=== PATIENT | male | born 1950 | race Caucasian/White ===

== ENCOUNTER 2017-03-20 19:39 | Emergency (ER) | payer MEDICARE, BC ==
[2017-03-20] MEDS ORDERED: Aspirin 81 MG Tab.Chew PO ONE (19:45)
--- NOTE | 2017-03-20 20:03 | EDM.PDOC ---
ED HPI GENERAL MEDICAL PROBLEM - General Chief Complaint: General Stated Complaint: CHEST PAIN Time Seen by Provider: 03/20/17 19:42 Source of Information: Reports: Patient History Limitations: Reports: No Limitations - History of Present Illness INITIAL COMMENTS - FREE TEXT/NARRATIVE: The patient presents with a 4 day history of pain of the left shoulder and arm which he describes as an aching pain. He reports that he began having substernal aching and pressure of his chest 2 days ago as well. He reports the pain has been intermittent lasting up to a few hours at a time. He denies exertional dyspnea or exertional angina. He denies orthopnea. He reports the last time he had chest pain was approximtely 2:30 p.m. today. He denies chest pain or pain in left arm currently. He denies a history of TX, LORIE, CABG, DVT, or PE. He denies a history of stroke. He has never had cardiac stress testing. He has risk factors of smoking 1-3 ppd for 40 years and currently smokes 1 ppd. He denies other symptoms or complaints. Middle Chest Pain Score (Numeric/FACES): 2 - Related Data Allergies Allergy/AdvReac Type Severity Reaction Status Date / Time No Known Allergies Allergy Verified 08/06/13 16:47 Home Meds: Home Meds Latanoprost [Latanoprost] 1 drop EYEBOTH DAILY 03/20/17 [History] Timolol Maleate [Timoptic 0.5% Ophth Soln] 1 drop EYEBOTH DAILY 03/20/17 [ History] Social & Family History - Tobacco Use Years of Tobacco use: 50 ED ROS GENERAL - Review of Systems Review Of Systems: ROS reveals no pertinent complaints other than HPI. ED EXAM, GENERAL - Physical Exam Exam: See Below Exam Limited By: No Limitations General Appearance: Alert, WD/WN, No Apparent Distress, Other (Marginal hygiene. Smells of cigarette smoke.) Eye Exam: Bilateral Eye: EOMI, Normal Fundi, Normal Inspection, PERRL Ears: Normal External Exam, Normal Canal, Hearing Grossly Normal, Normal TMs Ear Exam: Bilateral Ear: Auricle Normal, Canal Normal, TM normal Nose: Normal Inspection, Normal Mucosa, No Blood Throat/Mouth: Normal Inspection, Normal Lips, Normal Teeth, Normal Gums, Normal Oropharynx, Normal Voice, No Airway Compromise Head: Atraumatic, Normocephalic Neck: Normal Inspection, Supple, Non-Tender, Full Range of Motion. No: Lymphadenopathy (L), Lymphadenopathy (R) Respiratory/Chest: No Respiratory Distress, Lungs Clear, Normal Breath Sounds, No Accessory Muscle Use, Chest Non-Tender Cardiovascular: Normal Peripheral Pulses, Regular Rate, Rhythm, No Edema, No Gallop, No Murmur, No Rub GI/Abdominal: Normal Bowel Sounds, Soft, Non-Tender, No Organomegaly, No Distention Extremities: Normal Inspection, Normal Range of Motion, Non-Tender, No Pedal Edema Neurological: Alert, Oriented, CN II-XII Intact, Normal Cognition, Normal Gait, Normal Reflexes, No Motor/Sensory Deficits, Other (No pronator drift of arms. No dysmetria. Tone normal. No clonus or spasticity. Babinski absent in bilateral lower extremities. ) Psychiatric: Normal Affect, Normal Mood Skin Exam: Warm, Dry, Intact, Normal Color, No Rash Lymphatic: No Adenopathy Course - Vital Signs Last Recorded V/S: Last Vital Signs Temp 37.3 C 03/20/17 19:40 Pulse 80 03/20/17 19:40 Resp 16 03/20/17 19:40 BP 112/72 03/20/17 19:40 Pulse Ox 100 03/20/17 19:40 - Orders/Labs/Meds Orders: Active Orders 24 hr Category Date Time Status EKG Documentation Completion [RC] ASDIRECTED Care 03/20/17 19:44 Active Chest 1V Frontal [CR] Stat Exams 03/20/17 19:44 Ordered Labs: Laboratory Tests 03/20/17 03/20/17 Range/Units 19:44 19:44 WBC 11.7 H (4.0-10.2) K/uL RBC 5.02 (4.33-5.41) M/uL Hgb 15.5 (13.1-16.8) g/dL Hct 43.2 (39.0-49.0) % MCV 86.1 (84.0-98.0) fL MCH 30.9 (28.2-33.3) pg MCHC 35.9 (31.7-36.0) g/dL RDW 12.5 (11.2-14.1) % Plt Count 261 (150-350) K/uL Neut % (Auto) 61.9 (45.0-80.0) % Lymph % (Auto) 27.6 (10.0-50.0) % Bureau % (Auto) 8.8 (2.0-14.0) % Eos % (Auto) 1.4 (0.0-5.0) % Baso % (Auto) 0.3 (0.0-2.0) % Neut # (Auto) 7.22 H (1.40-7.00) K/uL Lymph # (Auto) 3.22 (0.50-3.50) K/uL Bureau # (Auto) 1.02 H (0.00-1.00) K/uL Eos # (Auto) 0.16 (0.00-0.50) K/uL Baso # (Auto) 0.03 (0.00-0.20) K/uL Sodium 136 (136-145) mmol/L Potassium 3.6 (3.5-5.1) mmol/L Chloride 101 (98-107) mmol/L Carbon Dioxide 26.1 (21.0-32.0) mmol/L BUN 12 (7-18) mg/dL Creatinine 0.93 (0.51-1.17) mg/dL Est Cr Clr Drug Dosing 68.60 mL/min Estimated GFR (MDRD) > 60 mL/min Glucose 389 H* (74-106) mg/dL Calcium 8.6 (8.5-10.1) mg/dL Total Bilirubin 0.3 (0.2-1.0) mg/dL AST 33 (15-37) U/L ALT 23 (12-78) U/L Alkaline Phosphatase 112 (46-116) IU/L Creatine Kinase 198 (26-308) U/L Creatine Kinase Index 8.1 H (0.0-2.5) % CK-MB (CK-2) 16.00 H* (0.00-3.60) ng/mL Troponin I 4.493 H* (0.000-0.056) ng/mL Total Protein 6.7 (6.4-8.2) g/dL Albumin 3.6 (3.4-5.0) g/dL Meds: Medications Discontinued Medications Generic Name Dose Route Start Last Admin Trade Name Freq PRN Reason Stop Dose Admin Aspirin 324 mg 03/20/17 19:45 03/20/17 19:48 Aspirin PO 03/20/17 19:46 324 mg ONETIME ONE Administration - Re-Assessments/Exams Free Text/Narrative Re-Assessment/Exam: No active chest pain during ER stay. Departure - Departure Time of Disposition: 00:30 Disposition: Home, Self-Care 01 Clinical Impression: Non-ST elevation TX (NSTEMI) - Discharge Information - My Orders Last 24 Hours: My Active Orders 03/20/17 19:44 EKG Documentation Completion [RC] ASDIRECTED Chest 1V Frontal [CR] Stat - Assessment/Plan Admission H&P: Please use this note as an admission H&P Last 24 Hours: My Active Orders 03/20/17 19:44 EKG Documentation Completion [RC] ASDIRECTED Chest 1V Frontal [CR] Stat Assessment:: Chest pain at rest. Plan: 1. Aspirin 324 mg PO on arrival to ER. 2. Nitroglycerin 0.4 mg SL in ER. 3. Lipitor 80 mg PO in ER. 4. NS at 100 mL/hour IV. 5. Oxygen per nasal cannula at 2 L. 6. Called to discuss transfer to [facility] in [place] and discussed with client integration manager Dr. Guallpa who agrees with above regimen and Plavix and heparin but no TNKase and ground EMS transfer. 7. Plavix 300 mg PO in ER. 8. Heparin bolus and drip started in ER. 9. Transfer by [facility] ground ambulance with telemetry, pulse oximetry, and meds as above.
[2017-03-20 20:12] LABS: CHLORIDE,CL 101 mmol/L (98-107); SODIUM,NA 136 mmol/L (136-145)
[2017-03-20] MEDS ORDERED: Nitroglycerin 0.4 MG Tab.SL SL PRN (20:20)
[2017-03-20] MEDS ORDERED: atorvaSTATin 40 MG Tab PO ONE (20:31)
[2017-03-20] MEDS ORDERED: Sodium Chloride 0.9% 1,000 ML IV SCH (20:45)
[2017-03-20] MEDS ORDERED: Clopidogrel 75 MG Tab PO ONE (20:50)
[2017-03-20] MEDS ORDERED: Heparin Sodium/D5W 500 ML IV ONE (20:52)
[2017-03-20] MEDS ORDERED: Heparin Sodium 5,000 Units/ML Vial ONE (20:54)
[2017-03-20] MEDS ORDERED: Heparin Sodium/D5W 500 ML ONE (20:54)
[2017-03-20 21:44] VITALS: BP 120/70
[2017-03-21] MEDS ORDERED: Insulin Regular, Human 100 Units/ML 3 ML Vial SUBCUT ONE (20:20)
== END 2017-03-20 21:02 | disposition home or self-care (01) ==
LOC: LL.ED 19:39
DX: I21.4 Non-ST elevation (NSTEMI) myocardial infarction (principal); Z79.899 Other long term (current) drug therapy
CPT/HCPCS: 36415; 71010; 80053; 82550; 82553; 84484; 85025; 93005; 96374; 96375; 99285; A9270; J1644; J7030

== ENCOUNTER 2021-08-05 08:28 | Day surgery (SDC) | payer MEDICARE, BC ==
[~2021-08-05 08:28] MED LIST: Midazolam 1 MG/ML 2 ML SDV ONE; Propofol 200 MG/20 ML SDV ONE; Sodium Chloride 0.9% 10 ML Syringe FLUSH SCH
[2021-08-05] MEDS ORDERED: Lactated Ringers 1,000 ML IV SCH (08:45)
[2021-08-05] MEDS ORDERED: Midazolam 1 MG/ML 2 ML SDV ONE (09:48)
[2021-08-05] MEDS ORDERED: Propofol 200 MG/20 ML SDV ONE (09:48)
--- NOTE | 2021-08-05 10:14 | PCM.HPR ---
H & P Addendum review - H & P Addendum Review Date of Original H & P: 07/15/21 Date Reviewed: 08/05/21 Time Reviewed: 09:35 Patient was Examined: No Changes
--- NOTE | 2021-08-05 10:18 | PCM.OPNOTE ---
- General Post-Op/Procedure Note Date of Surgery/Procedure: 08/05/21 Operative Procedure(s): Colonoscopy Findings: sig tics Pre Op Diagnosis: Screening Post-Op Diagnosis: Same Anesthesia Technique: MAC Primary Surgeon: Dylan Jefferson Anesthesia Provider: Lien Jackson Complications: None Condition: Good
[2021-08-05 10:39] VITALS: BP 136/90; PULSE 71
--- NOTE | 2021-08-05 10:45 | OR ---
Date of Procedure: 08/05/2021 PREOPERATIVE DIAGNOSIS: Colon screening. POSTOPERATIVE DIAGNOSIS: Sigmoid diverticulosis. PROCEDURE: Colonoscopy. ANESTHESIA: IV sedation. DESCRIPTION OF PROCEDURE: Patient was brought to the procedure room, where he was placed on his left side and IV sedation administered. Digital rectal exam was performed, which was normal. Colonoscope was inserted and advanced to the level of the cecum without difficulty. Cecal position was confirmed by identifying the appendiceal lumen and ileocecal valve. Prep was good and surfaces were well visualized. Upon withdrawing the scope, the ascending, transverse, and descending colon were normal in appearance. Sigmoid colon had a few diverticula present. Rectum was normal and retroflexion was normal. Air was removed and the scope withdrawn. Patient tolerated this procedure well and returned to recovery in stable condition. No further colonoscopies are necessary due to the patient's age. RENETTA SANTAMARIA MD /[id number]
== END 2021-08-05 11:20 | disposition home or self-care (01) ==
LOC: LL.SDS 08:28
PROVIDERS: ATTEND Surgery
DX: Z12.11 Encounter for screening for malignant neoplasm of colon (principal); K57.30 Diverticulosis of large intestine without perforation or abscess without bleeding; I25.10 Atherosclerotic heart disease of native coronary artery without angina pectoris; N40.0 Benign prostatic hyperplasia without lower urinary tract symptoms; K21.9 Gastro-esophageal reflux disease without esophagitis; E11.21 Type 2 diabetes mellitus with diabetic nephropathy; I10 Essential (primary) hypertension; Z79.899 Other long term (current) drug therapy
CPT/HCPCS: 00812; 82947; J2250; J2704; J7120

== ENCOUNTER 2023-12-05 19:50 | Emergency (ER) | payer MEDICARE, BC ==
[~2023-12-05 19:50] MED LIST changes: -Midazolam 1 MG/ML 2 ML SDV ONE; -Propofol 200 MG/20 ML SDV ONE; +Sodium Chloride 0.9% 1,000 ML IV SCH; -Sodium Chloride 0.9% 10 ML Syringe FLUSH SCH
[2023-12-05] MEDS ORDERED: Labetalol 20 MG/4 ML Syringe IVPUSH ONE (20:05)
[2023-12-05] MEDS ORDERED: Labetalol 20 MG/4 ML Syringe ONE (20:05)
[2023-12-05 20:08] LABS: BASOPHILS ABSOLUTE AUTO 0.03 K/uL (0.00-0.20); BASOPHILS PERCENT AUTO 0.4 % (0.0-2.0); EOSINOPHILS ABSOLUTE AUTO 0.26 K/uL (0.00-0.50); EOSINOPHILS PERCENT AUTO 3.3 % (0.0-5.0); HEMATOCRIT 40.9 % (39.0-49.0); HEMOGLOBIN 14.5 g/dL (13.1-16.8); LYMPHOCYTES ABSOLUTE AUTO 2.34 K/uL (0.50-3.50); LYMPHOCYTES PERCENT AUTO 29.4 % (10.0-50.0); MEAN CORPUSCULAR HEMOGLOBIN 29.8 pg (28.2-33.3); MEAN CORPUSCULAR HGB CONC 35.5 g/dL (31.7-36.0); MONOCYTES PERCENT AUTO 6.3 % (2.0-14.0); NEUTROPHILS ABSOLUTE AUTO 4.84 K/uL (1.40-7.00); NEUTROPHILS PERCENT AUTO 60.6 % (45.0-80.0); PLATELET COUNT,PLT 304 K/uL (150-350); RED BLOOD CELL COUNT 4.87 M/uL (4.33-5.41); RED CELL DISTRIBUTION WIDTH 12.3 % (11.2-14.1)
[2023-12-05] MEDS ORDERED: niCARdipine/Normal Saline 20 MG in Premix Bag 1 BAG IV SCH (20:15)
[2023-12-05 20:23] LABS: ALANINE AMINOTRANSFERASE,ALT 20 U/L (12-78); ALKALINE PHOSPHATASE 105 IU/L (46-116); ANION GAP 8.5 meq/L (7-15); ASPARTATE AMNIOTRANSFERASE,AST 14 U/L (15-37); BILIRUBIN TOTAL 0.3 mg/dL (0.2-1.0); BLOOD UREA NITROGEN,BUN 18 mg/dL (7-18); CALCIUM 8.9 mg/dL (8.5-10.1); CARBON DIOXIDE,CO2 34.1 mmol/L (21.0-32.0); CHLORIDE,CL 99 mmol/L (98-107); POTASSIUM,K 4.6 mmol/L (3.5-5.1); PROTEIN TOTAL,TP 6.1 g/dL (6.4-8.2); SODIUM,NA 137 mmol/L (136-145)
[2023-12-05 20:24] LABS: ESTIMATED GFR 48 mL/min (>=60); GLUCOSE RANDOM 444 mg/dL (70-99)
[2023-12-05 20:25] LABS: INR 0.9 (0.9-1.1); PROTHROMBIN TIME 9.2 SEC (9.0-11.1); PTT,PARTIAL THROMBOPLSTIN TIME 25.8 SEC (23.6-29.8)
[2023-12-05] MEDS ORDERED: Iopamidol 755 Mg/ML 100 ML Bottle IVPUSH STA (20:27)
== END 2023-12-05 21:03 ==
LOC: LL.ED 19:50
DX: I62.9 Nontraumatic intracranial hemorrhage, unspecified (principal); I10 Essential (primary) hypertension; K21.9 Gastro-esophageal reflux disease without esophagitis; E78.00 Pure hypercholesterolemia, unspecified; Z79.82 Long term (current) use of aspirin; Z79.4 Long term (current) use of insulin; Z79.899 Other long term (current) drug therapy; Z79.84 Long term (current) use of oral hypoglycemic drugs
CPT/HCPCS: 36415; 70450; 80053; 84484; 85025; 85610; 85730; 93010; 99284; 99285; J1920; J3490; J7030

== ENCOUNTER 2023-12-30 14:41 | Emergency (ER) | payer MEDICARE, BC ==
[2023-12-30] MEDS ORDERED: Sodium Chloride 0.9% 10 ML Syringe FLUSH PRN (14:51)
[2023-12-30 15:22] LABS: BASOPHILS ABSOLUTE AUTO 0.08 K/uL (0.00-0.20); BASOPHILS PERCENT AUTO 0.8 % (0.0-2.0); EOSINOPHILS ABSOLUTE AUTO 0.27 K/uL (0.00-0.50); EOSINOPHILS PERCENT AUTO 2.7 % (0.0-5.0); HEMATOCRIT 39.8 % (39.0-49.0); HEMOGLOBIN 13.4 g/dL (13.1-16.8); LYMPHOCYTES ABSOLUTE AUTO 2.75 K/uL (0.50-3.50); LYMPHOCYTES PERCENT AUTO 27.5 % (10.0-50.0); MEAN CORPUSCULAR HEMOGLOBIN 29.5 pg (28.2-33.3); MEAN CORPUSCULAR HGB CONC 33.7 g/dL (31.7-36.0); MEAN CORPUSCULAR VOLUME 87.7 fL (84.0-98.0); NEUTROPHILS ABSOLUTE AUTO 6.01 K/uL (1.40-7.00); PLATELET COUNT,PLT 420 K/uL (150-350); RED BLOOD CELL COUNT 4.54 M/uL (4.33-5.41); RED CELL DISTRIBUTION WIDTH 12.7 % (11.2-14.1)
[2023-12-30 15:49] LABS: ALANINE AMINOTRANSFERASE,ALT 22 U/L (12-78); ALBUMIN 2.6 g/dL (3.4-5.0); ALKALINE PHOSPHATASE 101 IU/L (46-116); ASPARTATE AMNIOTRANSFERASE,AST 17 U/L (15-37); BILIRUBIN TOTAL 0.4 mg/dL (0.2-1.0); BLOOD UREA NITROGEN,BUN 26 mg/dL (7-18); CALCIUM 9.3 mg/dL (8.5-10.1); CHLORIDE,CL 106 mmol/L (98-107); CREATININE 1.46 mg/dL (0.51-1.17); GLUCOSE RANDOM 131 mg/dL (70-99); MAGNESIUM 2.2 mg/dL (1.8-2.4); POTASSIUM,K 4.1 mmol/L (3.5-5.1); PRO B-TYPE NATRIUR PEPT,BNPPRO 168 pg/mL (0-125); PROTEIN TOTAL,TP 6.7 g/dL (6.4-8.2); SODIUM,NA 142 mmol/L (136-145)
[2023-12-30 15:50] LABS: ESTIMATED GFR 50 mL/min (>=60)
[2023-12-30 15:55] LABS: APPEARANCE,URINE SLIGHTLY CLOUDY; BILIRUBIN,URINE SMALL (NEGATIVE); COLOR,URINE DARK YELLOW; GLUCOSE,URINE NEGATIVE (NEGATIVE); KETONES,URINE 15 mg/dL (NEGATIVE); NITRITE,URINE NEGATIVE (NEGATIVE); OCCULT BLOOD,URINE LARGE (NEGATIVE); PROTEIN,URINE >=300 mg/dL (NEGATIVE); UROBILINOGEN,URINE 0.2 E.U./dL (0.2-1.0)
[2023-12-30 16:07] LABS: BACTERIA,URINE FEW /HPF (NONE TO FEW); LEUKOCYTE ESTERASE,URINE NEGATIVE (NEGATIVE); RBC,URINE PACKED /HPF; WBC,URINE 0-5 /HPF
[2023-12-30] MEDS: Metoprolol Succinate 25 MG Tab.ER PO ONE (17:35)
[2023-12-30] MEDS: QUEtiapine 25 MG Tab PO ONE ×2 (17:35→18:12)
[2023-12-31 18:39] VITALS: BP 155/82; PULSE 65
== END 2023-12-30 18:45 ==
LOC: LL.ED 14:41
DX: I63.9 Cerebral infarction, unspecified (principal); R46.89 Other symptoms and signs involving appearance and behavior; R45.1 Restlessness and agitation; I10 Essential (primary) hypertension; E78.00 Pure hypercholesterolemia, unspecified; K21.9 Gastro-esophageal reflux disease without esophagitis; Z79.82 Long term (current) use of aspirin; Z79.4 Long term (current) use of insulin; Z79.85 Long-term (current) use of injectable non-insulin antidiabetic drugs; Z79.899 Other long term (current) drug therapy
CPT/HCPCS: 36415; 70450; 71045; 80053; 81001; 82140; 82947; 83605; 83735; 83880; 85025; 93010; 99284; 99285; A9270-GY

== ENCOUNTER 2024-01-13 00:10 | Emergency (ER) | payer MEDICARE, BC | END 2024-01-13 02:10 | disposition EXP | LOC: LL.ED 00:10 | DX: R09.02 Hypoxemia; I10 Essential (primary) hypertension; E78.00 Pure hypercholesterolemia, unspecified; E10.9 Type 1 diabetes mellitus without complications; K21.9 Gastro-esophageal reflux disease without esophagitis; Z79.82 Long term (current) use of aspirin; Z79.4 Long term (current) use of insulin; Z79.84 Long term (current) use of oral hypoglycemic drugs; Z79.899 Other long term (current) drug therapy; Z86.73 Personal history of transient ischemic attack (TIA), and cerebral infarction without residual deficits | CPT/HCPCS: 99284 ==